=== PATIENT | female | born 1970 | race Caucasian/White ===

== ENCOUNTER 2016-12-24 10:12 | Emergency (ER) | payer OTHER ==
[~2016-12-24] VITALS: Ht 154.9 cm; Wt 94.6 kg
[~2016-12-24 10:12] MED LIST: BENTYL20 MG PO; CARAFATE1 GM PO; NAPROSYN500 MG PO; PROMETHAZINE HC25 M1 PO; ULTRAM50 MG PO
[2016-12-24 10:42] VITALS: BP 141/79
== END 2016-12-24 13:44 | disposition left against medical advice (07) ==
LOC: EME 10:12
DX: R51 Headache (principal); R53.83 Other fatigue; M54.5 Low back pain; Z53.21 Procedure and treatment not carried out due to patient leaving prior to being seen by health care provider

== ENCOUNTER 2017-01-23 23:45 | Emergency (ER) | payer OTHER ==
[~2017-01-23] VITALS: Ht 154.9 cm; Wt 93.0 kg
[2017-01-24 00:32] LABS: HEMATOCRIT 41.6 % (36.0-46.0); MCH 28.9 PG (29.0-34.0); MCHC 33.2 G/DL (30.0-36.0); MEAN PLAT.VOLUME 10.7 uM^3 (9.5-12.4); PLATELET COUNT 213 K/uL (156-360); RBC DIS.WIDTH-CV 12.7 % (11.8-14.6); RBC DIS.WIDTH-SD 40.2 % (39-53); RED BLOOD COUNT 4.78 M/uL (3.80-5.20); WHITE BLOOD COUNT 7.7 K/uL (4.1-10.2)
[2017-01-24 00:42] LABS: CHLORIDE 104 mEq/L (99-109); POTASSIUM 4.2 mEq/L (3.7-5.4); SODIUM 140 mEq/L (136-147)
[2017-01-24 00:44] LABS: GLUCOSE 110 mg/dL (70-99)
[2017-01-24 00:45] LABS: ANION GAP 9 MEQ/L (2-14)
[2017-01-24 00:47] LABS: GFR ESTIMATE (CALCULATED) > 59 mL/min/
[2017-01-24 00:48] LABS: UREA NITROGEN (BUN) 11 mg/dL (9-23)
[2017-01-24 00:56] LABS: TROP-I INTERPRETATION NEGATIVE; TROPONIN-I < 0.01 ng/mL (0.0-0.30)
[2017-01-24 02:04] VITALS: BP 126/68
== END 2017-01-24 02:05 | disposition home or self-care (01) ==
LOC: EME 23:45
DX: R07.9 Chest pain, unspecified (principal); M94.0 Chondrocostal junction syndrome [Tietze]; Z87.442 Personal history of urinary calculi; Z88.0 Allergy status to penicillin; Z88.6 Allergy status to analgesic agent
CPT/HCPCS: 71020; 80048; 84484; 85027; 93005; 99281; 99284; J1885

== ENCOUNTER 2017-12-01 14:25 | Emergency (ER) | payer BC ==
[~2017-12-01] VITALS: Ht 154.9 cm; Wt 91.1 kg
[2017-12-01 15:43] LABS: HEMATOCRIT 39.2 % (36.0-46.0); HEMOGLOBIN 13.6 G/DL (11.9-15.5); MCHC 34.7 G/DL (30.0-36.0); MCV 86.3 FL (83-99); PLATELET COUNT 179 K/uL (156-360); RBC DIS.WIDTH-CV 13.5 % (11.8-14.6); RBC DIS.WIDTH-SD 42.6 % (39-53); RED BLOOD COUNT 4.54 M/uL (3.80-5.20); WHITE BLOOD COUNT 8.8 K/uL (4.1-10.2)
[2017-12-01 15:53] LABS: CHLORIDE 104 mEq/L (99-109); POTASSIUM 4.4 mEq/L (3.7-5.4); SODIUM 138 mEq/L (136-147)
[2017-12-01 15:55] LABS: GLUCOSE 92 mg/dL (70-99)
[2017-12-01 15:59] LABS: CREATININE 1.1 mg/dL (0.6-1.3); GFR ESTIMATE (CALCULATED) 56 mL/min/
[2017-12-01 16:00] LABS: UREA NITROGEN (BUN) 19 mg/dL (9-23)
[2017-12-01 16:04] LABS: TROP-I INTERPRETATION NEGATIVE; TROPONIN-I < 0.01 ng/mL (0.0-0.30)
[2017-12-01] MEDS ORDERED: XYLOCAINE VISC100 ML PO (16:37)
[2017-12-01] MEDS ORDERED: CARAFATE1 GM PO (16:37)
[2017-12-01 17:00] VITALS: BP 130/78
== END 2017-12-01 17:00 | disposition home or self-care (01) ==
LOC: EME 14:25
PROVIDERS: Emergency Medicine
DX: R07.9 Chest pain, unspecified (principal); R09.89 Other specified symptoms and signs involving the circulatory and respiratory systems; K21.9 Gastro-esophageal reflux disease without esophagitis; R05 Cough; R11.10 Vomiting, unspecified; R07.0 Pain in throat; M54.2 Cervicalgia; I45.10 Unspecified right bundle-branch block; Z90.49 Acquired absence of other specified parts of digestive tract; Z87.442 Personal history of urinary calculi
CPT/HCPCS: 70360; 71046; 80048; 84484; 85027; 93005; 99281; 99284